=== PATIENT | male | born 1945 | race African-American/Black ===

== ENCOUNTER 2016-12-14 18:39 | Emergency (ER) | payer OTHER ==
[~2016-12-14] VITALS: Ht 177.8 cm; Wt 63.5 kg
[2016-12-14] MEDS ORDERED: ACETAMINOPHEN 325 MG TABLET. PO ONE (19:30)
[2016-12-14 19:35] LABS: BASO % 0 % (0-3); EOS % 0 % (0-3); HEMATOCRIT 37.9 % (39.0-53.0); HEMOGLOBIN 12.3 g/dL (13.0-17.5); LYMPH # 1.1 x10^3/uL (1.0-4.8); LYMPH % 15 % (24-48); MEAN CORPUSCULAR HEMOGLOBIN 28 pg (25-35); MEAN CORPUSCULAR HGB CONC 32 g/dL (31-37); MEAN CORPUSCULAR VOLUME 86 fL (79-100); MONO % 12 % (0-9); NEUT % 73 % (31-73); PLATELET COUNT 176 x10^3/uL (140-400); RED BLOOD COUNT 4.43 x10^6/uL (4.30-5.70); RED CELL DISTRIBUTION WIDTH 13.6 % (11.5-14.5); WHITE BLOOD COUNT 7.6 x10^3/uL (4.0-11.0)
[2016-12-14] MEDS ORDERED: IPRATRPIUM/ALBUTEROL 0.5/2.5MG 3 ML NEBU. NEB ONE (19:45)
[2016-12-14 19:49] LABS: OBC FLU VALID
[2016-12-14 19:50] LABS: CALCIUM 8.7 mg/dL (8.5-10.1); CREATININE 1.3 mg/dL (0.7-1.3); GFR 66.2; POTASSIUM 4.3 mmol/L (3.5-5.1)
[2016-12-14 19:56] LABS: ALBUMIN 3.1 g/dL (3.4-5.0); DIRECT BILIRUBIN 0.1 mg/dL (0.0-0.2); TOTAL BILIRUBIN 0.3 mg/dL (0.2-1.0); TOTAL PROTEIN 7.5 g/dL (6.4-8.2)
[2016-12-14 21:19] VITALS: BP 123/59
[2016-12-14] MEDS ORDERED: IBUP200T77 PO (22:09)
[2016-12-14] MEDS ORDERED: OSEL75CA PO (22:09)
[2016-12-14] MEDS ORDERED: AZIT250T6 PO (22:09)
[2016-12-14] MEDS ORDERED: PROAIR HFA8.5 GM INH (22:10)
--- NOTE | 2016-12-14 22:10 | PHYS DOC ---
Past Medical History Past Medical History: Other Additional Past Medical Histor: LEFT SIDED RIB FX Past Surgical History: Other Additional Past Surgical Histo: LEFT LOWER LOBECTOMY Alcohol Use: None Drug Use: None Adult General Chief Complaint Chief Complaint: SHORTNESS OF BREATH HPI HPI 71-year-old male presenting to the emergency department today with cough fevers and muscle aches runny nose over the past greater than a week. He does have a sharp pain in his "lungs" when he takes deep breaths in. Onset greater than a week. Location upper respiratory tract. Duration intermittent. He describes his fevers as being high. He denies neck stiffness meningismus confusion cyanosis or lethargy. Review of systems was positive for cough fever and runny nose. Negative for abdominal pain nausea vomiting. All other review of systems is negative unless otherwise noted in history of present illness. Review of Systems Review of Systems SEE ABOVE. Current Medications Current Medications Current Medications Medications (Trade) Dose Ordered Sig/Lauren Start Time Stop Time Status Last Admin Dose Admin Acetaminophen (Tylenol) 650 mg 1X ONCE 12/14/16 19:30 12/14/16 19:31 DC 12/14/16 19:50 650 MG Albuterol/ Ipratropium (Duoneb) 3 ml 1X ONCE 12/14/16 19:45 12/14/16 19:46 DC 12/14/16 20:00 3 ML Allergies Allergies Allergies Coded Allergies Type Severity Reaction Last Updated Verified No Known Drug Allergies 12/14/16 No Physical Exam Physical Exam Constitutional: Well developed, well nourished, no acute distress, non-toxic appearance. HENT: Normocephalic, atraumatic, bilateral external ears normal, oropharynx moist, no oral exudates, nose normal. [] Eyes: PERRLA, EOMI, conjunctiva normal, no discharge. [] Neck: Normal range of motion, no tenderness, supple, no stridor. Cardiovascular:Heart rate regular rhythm, no murmur [] Lungs & Thorax: Bilateral breath sounds clear to auscultation . No wheezing or crackles. Abdomen: Bowel sounds normal, soft, no tenderness, no masses, no pulsatile masses. [] Skin: Warm, dry, no erythema, no rash. Back: No tenderness, no CVA tenderness. [] Extremities: No tenderness, no cyanosis, no clubbing, ROM intact, no edema. Neurologic: Alert and oriented X 3, normal motor function, normal sensory function, no focal deficits noted. [] Psychologic: Affect normal, judgement normal, mood normal. Current Patient Data Vital Signs Vital Signs Date Time Temp Pulse Resp B/P Pulse Ox O2 Delivery O2 Flow Rate FiO2 12/14/16 21:19 100.4 98 20 123/59 94 Room Air 100.4 Lab Values Laboratory Tests Test 12/14/16 19:00 12/14/16 19:05 Influenza Type A Antigen Negative (NEGATIVE) Influenza Type B Antigen Negative (NEGATIVE) White Blood Count 7.6x10^3/uL (4.0-11.0) Red Blood Count 4.43x10^6/uL (4.30-5.70) Hemoglobin 12.3g/dL (13.0-17.5) L Hematocrit 37.9% (39.0-53.0) L Mean Corpuscular Volume 86fL (79-100) Mean Corpuscular Hemoglobin 28pg (25-35) Mean Corpuscular Hemoglobin Concent 32g/dL (31-37) Red Cell Distribution Width 13.6% (11.5-14.5) Platelet Count 176x10^3/uL (140-400) Neutrophils (%) (Auto) 73% (31-73) Lymphocytes (%) (Auto) 15% (24-48) L Monocytes (%) (Auto) 12% (0-9) H Eosinophils (%) (Auto) 0% (0-3) Basophils (%) (Auto) 0% (0-3) Neutrophils # (Auto) 5.6x10^3uL (1.8-7.7) Lymphocytes # (Auto) 1.1x10^3/uL (1.0-4.8) Monocytes # (Auto) 0.9x10^3/uL (0.0-1.1) Eosinophils # (Auto) 0.0x10^3/uL (0.0-0.7) Basophils # (Auto) 0.0x10^3/uL (0.0-0.2) Sodium Level 140mmol/L (136-145) Potassium Level 4.3mmol/L (3.5-5.1) Chloride Level 103mmol/L (98-107) Carbon Dioxide Level 29mmol/L (21-32) Anion Gap 8 (6-14) Blood Urea Nitrogen 13mg/dL (8-26) Creatinine 1.3mg/dL (0.7-1.3) Estimated GFR (Cockcroft-Gault) 66.2 Glucose Level 142mg/dL (70-99) H Calcium Level 8.7mg/dL (8.5-10.1) Total Bilirubin 0.3mg/dL (0.2-1.0) Direct Bilirubin 0.1mg/dL (0.0-0.2) Aspartate Amino Transferase (AST) 30U/L (15-37) Alanine Aminotransferase (ALT) 24U/L (16-63) Alkaline Phosphatase 72U/L (46-116) Troponin I Quantitative 0.037ng/mL (0.000-0.055) XP-Bts-Y-Type Natriuretic Peptide 19pg/mL (0-124) Total Protein 7.5g/dL (6.4-8.2) Albumin 3.1g/dL (3.4-5.0) L Lipase 290U/L (73-393) Laboratory Tests 12/14/16 19:05 Laboratory Tests 12/14/16 19:05 EKG EKG [] EKG shows sinus tachycardia normal axis. Normal QRS and intervals. ST segments congruent. Radiology/Procedures Radiology/Procedures [] Chest x-ray does not show obvious focal infiltrate. Radio opacification diffuse and in the central region suggestive of a viral pattern. No obvious pneumothorax present. Course & Med Decision Making Course & Med Decision Making Pertinent Labs and Imaging studies reviewed. (See chart for details) [] 71-year-old male presenting to the emergency department with fever and cough for greater than a week. Vital signs showed fever with mild tachycardia. Pertinent physical exam findings showed no wheezing on exam. He was given a DuoNeb in the emergency department which helped him feel better. He was also given acetaminophen to bring down his fever. CBC sent which showed mild anemia. Chemistry panel unremarkable. Troponin within the reference range of normal. Influenza testing negative though has a low sensitivity and low negative likelihood ratio. The patient clinically presented with symptoms suggestive of influenza. Given his fever and presentation I prescribed the patient's Tamiflu, ibuprofen azithromycin and an inhaler as needed for his cough and shortness of breath. He was subsequently discharged home to follow up to his primary care physician over the next 2-3 days. He was instructed to return to the emergency department if his symptoms worsened. He states discharge instructions given. Patient and spouse comfortable with plan. Dragon Disclaimer Dragon Disclaimer This electronic medical record was generated, in whole or in part, using a voice recognition dictation system. Departure Departure Impression: Primary Impression: Influenza Additional Impressions: Cough Rhinorrhea Myalgia Disposition: HOME, SELF-CARE Condition: STABLE Referrals: NO PCP (PCP) NICOLETTE CASSIDY MD Patient Instructions: Cough, Adult, Influenza, Adult Additional Instructions: Thank you for allowing us to participate in your care today. Followup with your primary care physician in 3 days if your symptoms do not improve. If you do not have a primary care provider you can ask for a list of our primary care providers. Return to the emergency department you have any new or concerning findings. This should be evaluated by the primary care physician and any necessary consulting services for continued management within a few days after discharge. Return to emergency room if you have any new or concerning symptoms including but not limited to fever, chills, nausea, vomiting, intractable pain, any new rashes, chest pain, shortness of air, uncontrolled bleeding, difficulty breathing, and/or vision loss. Scripts Albuterol Sulfate (Proair Hfa Inhaler)8.5 Gm Hfa.[id number].ad1 Puff INH PRN Q6HRS PRN SHORTNESS OF BREATH #1 INHALER Prov:ABDIAS KELLEY MD 12/14/16 Ibuprofen 200 Mg Mnmmgd301 Mg PO PRN Q6HRS PRN INFLAMMATION #30 TAB Prov:ABDIAS KELLEY MD 12/14/16 Oseltamivir Phosphate (Tamiflu)75 Mg Capsule1 Cap PO BID #10 CAP Prov:ABDIAS KELLEY MD 12/14/16 Azithromycin (Azithromycin Tablet)250 Mg Tablet1 Pkg PO UD #6 TAB Prov:ABDIAS KELLEY MD 12/14/16 Problem Qualifiers ABDIAS KELLEY MD Dec 14, 2016 22:10
--- NOTE | 2016-12-15 06:27 | EKG ---
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
--- NOTE | 2016-12-15 08:40 | RAD ---
EXAM: Chest one view. HISTORY: Chest pain, shortness of breath. COMPARISON: 12/14/2016. FINDINGS: A frontal view of the chest is obtained. Hyperinflation is consistent with chronic obstructive pulmonary disease. Linear opacities and volume loss in the left base most likely represent scarring. There are multiple chronic healed left inferior rib fractures. Blunting of the left costophrenic angle is most likely scarring rather than a small pleural effusion. There is no pneumothorax. The heart is not enlarged. IMPRESSION: 1. Left basilar volume loss and linear opacities most likely represent scarring. CT of the chest could define the anatomy if long-term stability is not already known. 2. Chronic obstructive pulmonary disease.
== END 2016-12-14 22:27 | disposition home or self-care (01) ==
LOC: ER 18:39
DX: J11.1 Influenza due to unidentified influenza virus with other respiratory manifestations (principal); M79.1 Myalgia; R00.0 Tachycardia, unspecified; Z90.2 Acquired absence of lung [part of]
CPT/HCPCS: 36415; 71010; 80048; 80076; 83690; 83880; 84484; 85027; 87804; 93005; 94250; 94640; 99285; J7620